=== PATIENT | female | born 1965 | race Caucasian/White ===

== ENCOUNTER → 2017-07-26 | Outpatient (CLI) | payer BC ==
--- NOTE | 2017-07-26 14:28 | REP ---
Clinical: Pain with recent trauma. Technique: Internal rotation, external rotation, and Y view. Findings: Subtle irregularity along the inferior margin of the glenoid rim may reflect degenerative changes although subtle fracture cannot be excluded and should be correlated with mechanism of injury. The humeral head appears normal. The acromioclavicular joint is intact. Impression: Cannot exclude an acute fracture involving the inferior margin of the glenoid rim. Signed by Timoteo Sanders MD 07/26/2017 02:19 P
--- NOTE | 2017-07-26 14:38 | REP ---
Clinical: Trauma. Technique: AP, lateral, bilateral oblique and sunrise views of the left knee. Findings: [place] and lateral views best demonstrates prepatellar soft tissue swelling. No acute fracture or dislocation identified. Underlying age-related degenerative changes noted. Impression: Prepatellar swelling. No acute fracture. Signed by Timoteo Sanders MD 07/26/2017 02:30 P
== END ==
LOC: EDBD → MERGE 13:54 → M LRY 13:54
PROVIDERS: ATTEND Nurse Practitioner Family
DX: S89.92XA Unspecified injury of left lower leg, initial encounter (principal); M25.512 Pain in left shoulder

== ENCOUNTER 2021-10-01 13:20 | Emergency (ER) | payer BC ==
[~2021-10-01] VITALS: Ht 160 cm; Wt 57.5 kg
--- OUTSIDE RECORDS SUMMARY | 2021-10-01 13:27 | CCD ---
Author Author [facility] Organization [facility] Address Unknown Phone Unavailable Support Name Relationship Address Phone GOVT CIVILIAN Next Of Kin BLDG [id number] [place], [place] [id number] TEVIN FORBES Next Of Kin [address] [facility] [address] [place] [address] TEVIN HOLT Next Of Kin [id number] [place] [address] [facility] [id number] [place] [address] Unavailable Re-disclosure Warning The records that you are about to access may contain information from federally-assisted alcohol or drug abuse programs. If such information is present, then the following federally mandated warning applies: This information has been disclosed to you from records protected by federal confidentiality rules (42 CFR part 2). The federal rules prohibit you from making any further disclosure of this information unless further disclosure is expressly permitted by the written consent of the person to whom it pertains or as otherwise permitted by 42 CFR part 2. A general authorization for the release of medical or other information is NOT sufficient for this purpose. The Federal rules restrict any use of the information to criminally investigate or prosecute any alcohol or drug abuse patient.The records that you are about to access may contain highly sensitive health information, the redisclosure of which is protected by Article 27-F of the [facility] Public Health law. If you continue you may have access to information: Regarding HIV / AIDS; Provided by facilities licensed or operated by the [facility] Office of Mental Health; or Provided by the [facility] Office for People With Developmental Disabilities. If such information is present, then the following [facility] mandated warning applies: This information has been disclosed to you from confidential records which are protected by state law. State law prohibits you from making any further disclosure of this information without the specific written consent of the person to whom it pertains, or as otherwise permitted by law. Any unauthorized further disclosure in violation of state law may result in a fine or penitentiary sentence or both. A general authorization for the release of medical or other information is NOT sufficient authorization for further disc losure. Immunizations Vaccine Date Status Description Data Source(s) COVID-19 VACCINE Pfizer 09/15/2021 12:00:00 AM EDT completed [facility] Vaccine Series Complete: YESThis Data wa s Submitted to [facility]. COVID-19 VACCINE Pfizer 08/25/2021 12:00:00 AM EDT completed [facility] Vaccine Series Complete: NOThis Data was Submitted to [facility]. Medications No Information Insurance Providers Payer name Policy type / Coverage type Policy ID Covered democrat ID Covered democrat's relationship to nayak Policy Nayak Plan Information [employer] [place] [employer] () Workers Compensation [id number] Self [id number] [employer] [place] [employer] () Workers Compensation [id number] Self [id number] [employer] [place] () Workers Compensation [id number] Self [id number] Acc/Dol ([employer]) () Workers Compensation [id number] Self [id number] BS [employer] Plan Commercial [id number] Self [id number] BS Fed Plan Commercial [id number] Self [id number] BS Fed Plan Commercial [id number] Self [id number] BS Fed Plan Commercial [id number] Self [id number] [facility] [id number] [facility] EMPLOYEE PROGRAM [id number] SELF PAY ONLY [id number] SP [id number] Problems, Conditions, and Diagnoses No Information Surgeries/Procedures No Information Results ID Date Data Source [id number] 11/21/2020 12:00:00 AM EST [facility] Name Value Range Interpretation Code Description Data Eleanor rce(s) Supporting Document(s) SARS-CoV-2 (COVID-19) RNA [Presence] in Respiratory specimen by TERESA with probe detection Not Detected [facility] This lab was ordered by [facility] and reported by [employer] Procedure Social History No Information
--- NOTE | 2021-10-01 14:01 | REP ---
INDICATION: deformity after a fall COMPARISON: None. TECHNIQUE: AP, lateral, bilateral oblique views right wrist. FINDINGS: Comminuted Colles' fracture of the distal radius and ulnar styloid fracture with overlying soft tissue swelling. The carpal bones appear intact and demonstrate underlying osteopenia and pancarpal age-related changes. IMPRESSION: Comminuted intra-articular Colles' fracture of the distal radius and ulnar styloid fracture. <Electronically signed by Timoteo Sanders > 10/01/21 [id number]
[2021-10-01] MEDS ORDERED: LIDOCAINE 1% MDV 20ML VIAL SC ONE (14:20)
--- OUTSIDE RECORDS SUMMARY | 2021-10-01 14:40 | CCD ---
Author Author [facility] Organization [facility] Address Unknown Phone Unavailable Support Name Relationship Address Phone [place] [address] [facility] CIVILIAN Next Of Kin BLDG [id number] [place] [address] TEVIN FORBES Next Of [address] [facility] [address] [place], [place] [id number] TEVIN HOLT Next Of Kin [id number] [place] [address] TEVIN HOLT ECON [id number] [place] [address] Unavailable Re-disclosure Warning The records that you [...] is protected by Article 27-F of the [facility] Public Health law. If you continue you may have access to information: Regarding HIV / AIDS; Provided by facilities licensed or operated by the [facility] Office of Mental Health; or Provided by the [facility] Office for People With Developmental Disabilities. If such information is present, then the following [facility] mandated warning applies: This information has [...] law may result in a fine or fpc sentence or both. A general authorization for the release of medical or other information is NOT sufficient authorization for further disc losure. Immunizations Vaccine Date Status Description Data Source(s) COVID-19 VACCINE Pfizer 09/15/2021 12:00:00 AM EDT completed [facility] Vaccine Series Complete: YESThis Data wa s Submitted to [facility] [employer]. COVID-19 VACCINE Pfizer 08/25/2021 12:00:00 AM EDT completed [facility] Vaccine Series Complete: NOThis Data was Submitted to [facility] [employer]. Medications No Information Insurance Providers Payer name Policy type / Coverage type Policy ID Covered libertarian ID Covered libertarian's relationship to nayak Policy Nayak Plan Information Acc/Dol ([employer]) () Workers Compensation [id number] Self [id number] [employer] [place] [employer] () Workers Compensation [id number] Self [id number] Acc/[employer]ol ([employer]) () Workers Compensation [id number] Self [id number] Acc/[employer]ol ([employer]) () Workers Compensation [id number] Self [id number] BS [employer] Plan Commercial [id number] Self [id number] BS Fed Plan Commercial [id number] Self [id number] BS Fed Plan Commercial [id number] Self [id number] BS Fed Plan Commercial [id number] Self [id number] [facility] [id number] SP [id number] [facility] EMPLOYEE PROGRAM [id number] SP [id number] SELF PAY ONLY [id number] SP [id number] Problems, Conditions, and Diagnoses No Information Surgeries/Procedures No Information Results ID Date Data Source [id number] 11/21/2020 12:00:00 AM EST [facility] Name Value Range Interpretation Code Description Data Eleanor rce(s) Supporting Document(s) SARS-CoV-2 (COVID-19) RNA [Presence] in Respiratory specimen by TERESA with probe detection Not Detected [facility] This lab was ordered by [facility] and reported by [employer] Procedure Social History No Information
--- NOTE | 2021-10-01 17:18 | REP ---
INDICATION: trauma-reduction COMPARISON: None. TECHNIQUE: Intraoperative fluoroscopic imaging using portable C-arm technique. FINDINGS: Findings suggest closed reduction with mildly improved alignment of the comminuted distal radial fracture. Total fluoroscopic time 27 seconds. IMPRESSION: Status post closed reduction. <Electronically signed by Timoteo Sanders > 10/01/21 1038
[2021-10-01 17:30] VITALS: BP 172/104
[2021-10-01] MEDS ORDERED: NORCO, ANEXSIA 5/325MG TABLET (HYDROcodone/ACETAMINOPHEN) PO ONE (17:40)
[2021-10-01] MEDS ORDERED: HYDR-3713 PO (17:43)
--- NOTE | 2021-10-01 19:25 | REPVR ---
PROCEDURE INFORMATION: Exam: CT Right Upper Extremity Without Contrast, Wrist Exam date and time: 10/01/2021 5:37 PM Age: 66 years old Clinical indication: Injury or trauma; Fall; Blunt trauma (contusions or hematomas); Wrist; Right; Additional info: CT wrist without contrast--post reduction right side TECHNIQUE: Imaging protocol: CT of the Right upper extremity without contrast was performed. Exam focused on the wrist. Radiation optimization: All CT scans at this facility use at least one of these dose optimization techniques: automated exposure control; mA and/or kV adjustment per patient size (includes targeted exams where dose is matched to clinical indication); or iterative reconstruction. COMPARISON: RF Wrist Ap, Lat RIGHT 10/01/2021 5:07 PM FINDINGS: Bones/joints: The ulnar styloid is a separate fragment however there is a fracture of this fragment. There is an irregular transverse fracture of the metaphysis of the distal radius. There is a vertical split fracture of the distal metaphysis. This extends into the mid articular surface. On the sagittal reconstructed views it appears that there is improved alignment of the distal radial fracture fragments. The vertical split fracture to the distal articular surface demonstrates as much is 7 mm of separation. There is interruption of the articular surface. There is some shortening deformity with overlap of major fragments estimated by 6 mm. Soft tissues: Severe soft tissue swelling. IMPRESSION: 1. Improved alignment with a cast in place. 2. Transverse fracture through the metaphysis with overlap/shortening by approximately 6 mm. 3. Vertical split fracture of the distal fragment of the distal articular surface with 7 mm of separation of these major distal fragments. Electronically signed by: Ashwin Ritter On 10/01/2021 19:25:31 PM
--- NOTE | 2021-10-01 21:31 | CR ---
CONSULTATION DATE: 10/01/2021 REASON FOR CONSULTATION: Right wrist pain. CHIEF COMPLAINT: Right wrist pain. HISTORY OF PRESENT ILLNESS: The patient is a 66-year-old female with no past medical or surgical history who presented to the emergency department today for right wrist pain. She lost her footing while walking down a little hill earlier today and fell on an outstretched right hand. She noted the onset pain, swelling and deformity who presented to the emergency department for further evaluation. PAST MEDICAL AND SURGICAL HISTORY: Noncontributory. REVIEW OF SYSTEMS: All 10 point review of systems negative except for HPI. ALLERGIES: None. MEDICATIONS: None. SOCIAL HISTORY: Denies any tobacco, alcohol or drugs. She works at [employer] on [address]. PHYSICAL EXAMINATION: GENERAL: Well-developed, well-nourished, in no acute distress. NEURO: Alert and oriented x4. PSYCH: Normal mood and affect. CARDIAC: Regular rate and rhythm. RESPIRATORY: Nonlabored breathing. Equal chest rise and fall. ABDOMEN: Nontender. SKIN: Intact, no ecchymosis, swelling or breaks in the skin. MUSCULOSKELETAL: Focused exam of right wrist and upper extremity demonstrates an obvious deformity of the wrist with swelling. The patient has tenderness with palpation at the wrist but not in the hand or in the forearm or elbow or arm or shoulder. Other than her wrist, her range of motion is full. Wrist range of motion is limited secondary to pain. Sensation intact to light touch on the radial, ulnar, median nerve distribution. Motor intact in the AIN, PIN and radial and ulnar nerves. She has 2+ radial pulse and a brisk capillary refill in all digits. IMAGING: Radiographs of the right wrist demonstrate a dorsally displaced and apex volar angulated distal radius fracture. There is a small ulnar styloid fracture as well. ASSESSMENT: This is a 66-year-old female with a ground-level fall onto an outstretched right hand with a distal radius fracture that is displaced and dorsally comminuted. I had a long discussion with the patient about the treatment options. Initially I recommended a hematoma block and a closed reduction and mobilization in a sugar tong splint. The patient was amenable to this and signed a consent form for this. After this was completed, post-reduction radiographs were obtained which demonstrated adequate reduction parameters for the distal radius fracture. PLAN: Going forward for her will be remain in the splint for a week or so and then transition to a cast which I would like to overwrap. She will follow up one week later for x-rays out of plaster and transition to a fiberglass cast. Likely six weeks of cast mobilization followed by some bracing. The patient will plan to follow up with orthopedics in a week or so. She was given strict instructions on elevation and moving her fingers and if pain significantly worsens or starts getting numbness and tingling unexplainable in the median nerve distribution, to return to the ER for further evaluation. The patient demonstrated understanding of these instructions and she will be seen again in followup.
== END 2021-10-01 17:35 | disposition home or self-care (01) ==
LOC: M ED 13:20
DX: S52.531A Colles' fracture of right radius, initial encounter for closed fracture (principal); W01.0XXA Fall on same level from slipping, tripping and stumbling without subsequent striking against object, initial encounter; Y92.89 Other specified places as the place of occurrence of the external cause

== ENCOUNTER → 2021-10-09 | Outpatient (CLI) | payer BC ==
[~2021-10-09] MED LIST: HYDR-3713 PO
== END ==
LOC: M SOG 07:56
PROVIDERS: ATTEND Orthopaedic Surgery Sports Medicine
DX: S52.501A Unspecified fracture of the lower end of right radius, initial encounter for closed fracture (principal); Y92.9 Unspecified place or not applicable; Y93.9 Activity, unspecified; Y99.9 Unspecified external cause status

== ENCOUNTER → 2021-10-16 | Outpatient (CLI) | payer BC ==
--- NOTE | 2021-10-17 03:04 | REP ---
INDICATION: RT WRIST FX. COMPARISON: 10/09/2021 TECHNIQUE: AP, lateral, oblique views of the right wrist FINDINGS: Stable appearance and positioning of the distal radial and ulnar styloid fractures are noted with slight increase in callus formation suggested. IMPRESSION: Stable appearance of the fracture. Subtle increased healing suggested. <Electronically signed by Timoteo Sanders > 10/17/21 1492
== END ==
LOC: M SOG 14:06
PROVIDERS: ATTEND Orthopaedic Surgery Sports Medicine
DX: S52.501D Unspecified fracture of the lower end of right radius, subsequent encounter for closed fracture with routine healing (principal); X58.XXXD Exposure to other specified factors, subsequent encounter

== ENCOUNTER → 2021-11-02 | Outpatient (CLI) | payer BC ==
--- NOTE | 2021-11-02 15:23 | REP ---
INDICATION: RT WRIST FX. COMPARISON: 10/16/2021 TECHNIQUE: AP, lateral, oblique views of the right wrist FINDINGS: Fracture is stable in appearance and demonstrates increased periosteal reaction and callus formation consistent with progressive healing. Further evaluation is limited by overlying cast material. IMPRESSION: Healing fracture <Electronically signed by Timoteo Sanders > 11/02/21 [id number]
== END ==
LOC: M SOG 08:20
PROVIDERS: ATTEND Student in an Organized Health Care Education/Training Program
DX: S52.501D Unspecified fracture of the lower end of right radius, subsequent encounter for closed fracture with routine healing (principal)

== ENCOUNTER → 2021-11-14 | Outpatient (CLI) | payer BC ==
--- NOTE | 2021-11-14 20:57 | REP ---
INDICATION: EL. COMPARISON: 11/02/2021 TECHNIQUE: AP, lateral oblique FINDINGS: There is a nonacute healing fracture of the distal radius and ulnar styloid. The distal radius fracture demonstrates significant surrounding callus formation and periosteal reaction. Underlying age-related degenerative changes noted to the wrist. IMPRESSION: Healing fracture <Electronically signed by Timoteo Sanders > 11/14/212052
== END ==
LOC: M SOG 15:03
PROVIDERS: ATTEND Orthopaedic Surgery Hand Surgery
DX: S52.501D Unspecified fracture of the lower end of right radius, subsequent encounter for closed fracture with routine healing (principal); Y92.9 Unspecified place or not applicable; Y93.9 Activity, unspecified; Y99.9 Unspecified external cause status